=== PATIENT | female | born 1975 | race Two or more races ===

== ENCOUNTER 2016-06-10 02:28 | Emergency (ER) | payer SELFPAY ==
[~2016-06-10] VITALS: Ht 152.4 cm; Wt 65.8 kg
[2016-06-10 03:39] LABS: Basophils # (auto) 0 uL; Basophils % (auto) 0.5 % (0.0-2.0); DEFINITIVE VIEW TRANSMISSION; Eosinophils # (auto) 0.1 uL; Eosinophils % (auto) 1.3 % (0.0-7.0); Hematocrit 37.7 % (36.0-46.0); Hemoglobin 12.2 g/dL (12.2-16.2); Lymphocytes # (auto) 1.4 uL; Lymphocytes % (auto) 33.6 % (10.0-50.0); Mean Corpuscular Hemoglobin 26.2 pg (28.0-32.0); Mean Corpuscular Hgb Conc. 32.3 g/dL (32.0-36.0); Mean Corpuscular Volume 80.9 fL (80.0-100.0); Mean Platelet Volume 7.9 fL (7.4-10.4); Monocytes # (auto) 0.2 uL; Monocytes % (auto) 5.5 % (0.0-12.0); Neutrophils # (auto) 2.4 uL; Neutrophils % (auto) 59.1 % (37.0-80.0); Platelet Count (auto) 306 10^3/uL (140-450); White Blood Cell 4.1 10^3/uL (4.4-10.8)
[2016-06-10 04:09] LABS: Albumin 3.7 g/dL (3.4-5.0); BUN/Creatinine Ratio 14.1; Bilirubin, Total 0.3 mg/dL (0.2-1.0); Calcium 8.8 mg/dL (8.5-10.1); Potassium 3.7 mmol/L (3.5-5.1); Total Protein 7.5 g/dL (6.4-8.2)
[2016-06-10 04:58] LABS: Urine Bilirubin Negative (Negative); Urine Blood Negative /uL (Negative); Urine Color Yellow (Yellow); Urine Glucose Normal (Normal); Urine Ketone Negative (Negative); Urine Mucus FEW (None Seen); Urine Nitrite Negative (Negative); Urine RBC 1 /hpf (0 - 4); Urine Squamous Epithelial Cell FEW /hpf (<5); Urine Urobilinogen Normal (Negative)
[2016-06-10 11:23] VITALS: BP 113/79
[2016-06-10] MEDS ORDERED: MECLIZINE HCL 25 MG TAB PO ONE (13:15)
== END 2016-06-10 14:54 | disposition home or self-care (01) ==
LOC: ER 02:31
DX: H81.13 Benign paroxysmal vertigo, bilateral (principal)
CPT/HCPCS: 36415; 70450; 71010; 80053; 81001; 81025; 82962; 85025; 94761; 99285; G0434; J8597